=== PATIENT | female | born 1975 | race Caucasian/White ===

== ENCOUNTER 2018-10-21 17:53 | Emergency (ER) | payer SELFPAY ==
[2018-10-21 18:05] VITALS: BP 130/79; PULSE 105; TEMP 97.9; BMI 31.6
--- NOTE | 2018-10-21 18:28 | PDOC ---
History of Present Illness - General Chief Complaint: Cold Symptoms Stated Complaint: COLD SYX Time Seen by Provider: 10/21/18 18:24 - History of Present Illness Initial Comments: 10/21/18 18:26 43-year-old female without comorbidities presents for evaluation of sinus congestion and fever 7 days. Past History - Past Medical History Allergies/Adverse Reactions: Allergies Allergy/AdvReac Type Severity Reaction Status Date / Time No Known Allergies Allergy Verified 10/21/18 18:02 Home Medications: Ambulatory Orders Amox-Tr/K Cl [Augmentin - 875Mg Tablet] 1 tab PO BID #20 tablet 10/21/18 Budesonide [Rhinocort Allergy] 1 spray NS ONCE #1 spray.pump 10/21/18 COPD: No - Surgical History Cholecystectomy: Yes - Family Disease History Family Disease History: Heart Disease: Father (see HPI), Other: Mother ( ) - Suicide/Smoking/Psychosocial Hx Smoking History: Never smoked Have you smoked in the past 12 months: No Number of Cigarettes Smoked Daily: 1 Hx Alcohol Use: No Drug/Substance Use Hx: No Substance Use Type: None Review of Systems - Review of Systems Constitutional: Yes: Fever HEENTM: Yes: Nose Congestion *Physical Exam - Vital Signs Last Vital Signs Temp Pulse Resp BP Pulse Ox 97.9 F 105 H 28 H 130/79 99 10/21/18 18:03 10/21/18 18:03 10/21/18 18:03 10/21/18 18:03 10/21/18 18:03 - Physical Exam Comments: 10/21/18 18:27 HEAD: NC/AT EYES: Conjuntiva clear Ears: Canals and TM's normal NOSE: Clear discharge injected turbinates. THROAT: Moist mucous membrances, oral pharanx clear, uvula midline NECK: Supple without adenopathy CARDIAC: S1 S2 LUNGS: CTA Full and Equal breath sounds ABDOMEN: Soft NT ND MS: Full ROM in all joints without edema NEUROLOGIC: No gross sensory or motor deficits, NVID SKIN: Normal color and temperature no lesions or rashes Moderate Sedation - Procedure Monitoring Vital Signs: Procedure Monitoring Vital Signs Temperature 97.9 F 10/21/18 18:03 Pulse Rate 105 H 10/21/18 18:03 Respiratory Rate 28 H 10/21/18 18:03 Blood Pressure 130/79 10/21/18 18:03 O2 Sat by Pulse Oximetry (%) 99 02/10/19 18:03 *DC/Admit/Observation/Transfer Diagnosis at time of Disposition: Sinusitis - Discharge Dispostion Disposition: HOME - Prescriptions Prescriptions: Amox-Tr/K Cl [Augmentin - 875Mg Tablet] 1 tab PO BID #20 tablet Budesonide [Rhinocort Allergy] 1 spray NS ONCE #1 spray.pump - Referrals Referrals: Marcus Ayon MD [Staff Physician] - - Patient Instructions Printed Discharge Instructions: Sinusitis, DI for Sinusitis Additional Instructions: Please take the antibiotics as directed and finish the entire course. Please use nasal spray as directed as well. Return to the emergency room should symptoms worsen or go unresolved and follow-up with ear nose and throat doctor in 1-2 days for further evaluation and treatment options. You may take Tylenol and Motrin as directed for pain and fever. - Post Discharge Activity
== END 2018-10-21 18:32 | disposition home or self-care (01) ==
LOC: JERFT 17:53
DX: J32.8 Other chronic sinusitis (principal)
CPT/HCPCS: 99281-25

== ENCOUNTER 2019-01-19 15:53 | Emergency (ER) | payer OTHER ==
[2019-01-19 16:07] VITALS: BMI 39.9
[2019-01-19] MEDS ORDERED: FAMOTIDINE 20 MG/50 ML IVPB 20 MG/50 ML MG IVPB ONE ×2 (17:01→17:12)
[2019-01-19] MEDS ORDERED: SODIUM CHLORIDE 0.9% 500 ML INFUS.BAG IV ONE ×2 (17:01→17:58)
[2019-01-19] MEDS ORDERED: METOCLOPRAMIDE HCL INJECTION 10 MG/2 ML VIAL IVPUSH ONE (17:01)
[2019-01-19] MEDS ORDERED: METOCLOPRAMIDE HCL INJECTION 10 MG/2 ML VIAL ONE (17:12)
[2019-01-19 17:30] LABS: BASO % 0.9 % (0-2.0); EOS % 2.2 % (0-4.5); HEMATOCRIT 34.5 % (32.4-45.2); HEMOGLOBIN 10.9 GM/dL (10.7-15.3); LYMPH % 26.1 % (8-40); MCH 24.1 pg (25.7-33.7); MCHC 31.5 g/dl (32.0-36.0); MEAN CELL VOLUME 76.6 fl (80-96); MEAN PLT VOLUME 7.1 fl (7.5-11.1); MONO % 9.7 % (3.8-10.2); NEUT % 61.1 % (42.8-82.8); PLATELET COUNT 350 K/MM3 (134-434); RDW 16.7 % (11.6-15.6); WHITE BLOOD COUNT 5.7 K/mm3 (4.0-10.0)
[2019-01-19 17:40] LABS: INR 1.03 (0.83-1.09); PROTHROMBIN TIME (PATIENT) 12.2 SEC (9.7-13.0)
[2019-01-19 17:55] LABS: ALBUMIN 3.4 g/dl (3.4-5.0); ALK PHOS 107 U/L (45-117); ANION GAP 7 MMOL/L (8-16); BILIRUBIN,TOTAL 0.2 mg/dL (0.2-1); BLOOD UREA NITROGEN 16 mg/dL (7-18); CALCIUM 8.3 mg/dL (8.5-10.1); CHLORIDE 107 mmol/L (98-107); CO2 27 mmol/L (21-32); CREATININE 0.9 mg/dL (0.55-1.3); GLUCOSE,RANDOM 85 mg/dL (74-106); POTASSIUM 3.5 mmol/L (3.5-5.1); SGOT/AST 21 U/L (15-37); SGPT/ALT 30 U/L (13-61); SODIUM 141 mmol/L (136-145); TOT PROT 7.1 g/dl (6.4-8.2)
--- NOTE | 2019-01-19 18:01 | PDOC ---
History of Present Illness - General Chief Complaint: Pain Stated Complaint: UPPER ABD PAIN Time Seen by Provider: 01/19/19 16:42 History Source: Patient Exam Limitations: No Limitations - History of Present Illness Initial Comments: 01/19/19 17:56 43 yo F w/ no sig PMHx, h/o cholecystectomy comes in c/o 2 days of diffuse epigastric pain associated with multiple episodes of NB diarrhea, 6 episodes a day. (+)nausea and a diffuse midld pounding headache with malaise. It all started after she took a meagan/cucumber tea for constipation. Her daughter is also sick with abdominal pain, vomiting/diarrhea but she did not drink from the tea. They both ate chicken wings prior to getting sick. No other complaints today, no vomiting, no lower abdominal pain, no neck pain/stiffness, no dizziness, no urinary symptoms, no vision changes, no rash, no recent travel. (+)decrease in urination, only urinated once today. 01/19/19 17:58 01/19/19 17:59 01/19/19 18:17 Past History - Past Medical History Allergies/Adverse Reactions: Allergies Allergy/AdvReac Type Severity Reaction Status Date / Time Penicillins Allergy Mild Itching Verified 01/19/19 16:04 Home Medications: Ambulatory Orders NK [No Known Home Medication] 01/19/19 COPD: No - Surgical History Cholecystectomy: Yes - Family Disease History Family Disease History: Heart Disease: Father (see HPI), Other: Mother ( ) - Immunization History Immunization Up to Date: No - Suicide/Smoking/Psychosocial Hx Smoking History: Never smoked Have you smoked in the past 12 months: No Number of Cigarettes Smoked Daily: 1 Information on smoking cessation initiated: No Hx Alcohol Use: Yes (socially) Drug/Substance Use Hx: No Substance Use Type: None Review of Systems - Review of Systems Able to Perform ROS?: Yes Constitutional: Yes: Malaise. No: Chills, Fever, Night Sweats HEENTM: No: Eye Pain, Recent change in vision, Throat Pain Respiratory: No: Cough, Shortness of Breath Cardiac (ROS): No: Chest Pain, Palpitations, Chest Tightness ABD/GI: Yes: Diarrhea, Nausea, Poor Appetite, Poor Fluid Intake, Abdominal cramping. No: Vomiting : No: Dysuria, Hematuria Musculoskeletal: No: Back Pain Integumentary: No: Rash Neurological: Yes: Headache. No: Numbness, Dizziness Psychiatric: Yes: Change in Appetite Endocrine: No: Unexplained Weight Loss *Physical Exam - Vital Signs Last Vital Signs Temp Pulse Resp BP Pulse Ox 98.2 F 104 H 18 133/91 98 01/19/19 16:04 01/19/19 16:04 01/19/19 16:04 01/19/19 16:04 01/19/19 17:05 - Physical Exam General Appearance: Yes: Nourished. No: Apparent Distress HEENT: positive: JANNETH, Normal ENT Inspection, Normal Voice. negative: Pale Conjunctivae, Scleral Icterus (R), Scleral Icterus (L) Neck: positive: Supple. negative: Decreased range of motion, Tender midline Respiratory/Chest: positive: Lungs Clear, Normal Breath Sounds. negative: Respiratory Distress, Accessory Muscle Use Cardiovascular: positive: Regular Rhythm, Regular Rate Gastrointestinal/Abdominal: positive: Normal Bowel Sounds, Tender (epigastric/ RUQ/LLQ. No tenderness at McBurney's point, no rebound.), Soft. negative: Decreased BS, Guarding, Rebound Musculoskeletal: positive: Normal Inspection. negative: CVA Tenderness, Decreased Range of Motion Extremity: positive: Normal Capillary Refill, Normal Inspection, Normal Range of Motion. negative: Tender, Pedal Edema Integumentary: positive: Normal Color, Dry. negative: Jaundice, Rash Neurologic: positive: Fully Oriented, Alert, Normal Mood/Affect ED Treatment Course - LABORATORY CBC & Chemistry Diagram: 01/19/19 17:20 01/19/19 17:20 - ADDITIONAL ORDERS Additional order review: Laboratory Results 01/19/19 01/19/19 17:20 17:20 PT with INR 12.20 INR 1.03 Phosphorus 3.0 Magnesium 2.0 Lipase 232 01/19/19 17:20 RBC 4.50 MCV 76.6 L MCHC 31.5 L RDW 16.7 H MPV 7.1 L Neutrophils % 61.1 Lymphocytes % 26.1 Monocytes % 9.7 Eosinophils % 2.2 D Basophils % 0.9 - Medications Given in the ED: ED Medications Discontinued Medications Generic Name Dose Route Start Last Admin Trade Name Freq PRN Reason Stop Dose Admin Diphenhydramine HCl 25 mg 01/19/19 17:01 01/19/19 17:26 Benadryl Injection - IVPUSH 01/19/19 17:02 25 mg ONCE ONE Administration Famotidine/Sodium Chloride 20 mg in 50 mls @ 100 mls/hr 01/19/19 17:01 17:27 Pepcid 20 Mg Premixed Ivpb - IVPB 01/19/19 17:30 100 mls/hr ONCE ONE Administration Metoclopramide HCl 10 mg 01/19/19 17:01 01/19/19 17:27 Reglan Injection - IVPUSH 01/19/19 17:02 10 mg ONCE ONE Administration Sodium Chloride 1,000 ml 01/19/19 17:01 01/19/19 17:26 Normal Saline - IV 01/19/19 17:02 1,000 ml ONCE ONE Administration Medical Decision Making - Medical Decision Making 01/19/19 18:00 43 yo F w/ likely AGE. Will line and lab, give fluids, pepcid, reglan, benadryl and reassess. 01/19/19 18:51 Change of shift, care of patient signed over to MD Osullivan who will reassess patient, check labs and decide on a dispo plan along with the attending. 43 yo F w. Nausea/Diarrhea, abdominal pain, likely AGE. Please reassess, pending labs , UA/UCG. Pt feeling much better after meds *DC/Admit/Observation/Transfer Diagnosis at time of Disposition: Abdominal pain Qualifiers: Abdominal location: unspecified location Qualified Code(s): R10.9 - Unspecified abdominal pain - Referrals - Patient Instructions - Post Discharge Activity
[2019-01-19 19:36] LABS: EPI CELLS 2.3 /HPF (0-5/HPF); URINE APPEARANCE CLEAR; URINE BACTERIA 1.4 /hpf (NEGATIVE); URINE BILIRUBIN NEGATIVE (NEGATIVE); URINE CASTS 1 /lpf (0-8); URINE COLOR RED; URINE GLUCOSE (UA) NEGATIVE (NEGATIVE); URINE KETONE NEGATIVE (NEGATIVE); URINE LEUK ESTERASE 1+ (NEGATIVE); URINE NITRITE NEGATIVE (NEGATIVE); URINE PROTEIN TRACE (NEGATIVE); URINE RBC 2604 /hpf (0-4); URINE UROBILINOGEN 0.2 mg/dL (0.2-1.0); URINE WBC 10 /hpf (0-5)
[2019-01-19 19:48] VITALS: BP 125/76; PULSE 85; TEMP 97.6
--- NOTE | 2019-01-19 19:54 | PDOC ---
*Physical Exam - Vital Signs Last Vital Signs Temp Pulse Resp BP Pulse Ox 97.6 F 85 18 125/76 100 01/19/19 19:46 01/19/19 19:46 01/19/19 16:04 01/19/19 19:46 01/19/19 19:46 ED Treatment Course - LABORATORY CBC & Chemistry Diagram: 01/19/19 17:20 01/19/19 17:20 - ADDITIONAL ORDERS Additional order review: Laboratory Results 01/19/19 01/19/19 01/19/19 18:50 17:20 17:20 PT with INR 12.20 INR 1.03 Sodium Potassium Chloride Carbon Dioxide Anion Gap BUN Creatinine Est GFR (CKD-EPI)AfAm Est GFR (CKD-EPI)NonAf Random Glucose Calcium Phosphorus 3.0 Magnesium 2.0 Total Bilirubin AST ALT Alkaline Phosphatase Total Protein Albumin Lipase 232 Beta HCG, Quant Urine HCG, Qual Negative Blood Type Antibody Screen 01/19/19 01/19/19 17:20 17:20 PT with INR INR Sodium 141 Potassium 3.5 Chloride 107 Carbon Dioxide 27 Anion Gap 7 L BUN 16 Creatinine 0.9 Est GFR (CKD-EPI)AfAm 92.05 Est GFR (CKD-EPI)NonAf 79.42 Random Glucose 85 Calcium 8.3 L Phosphorus Magnesium Total Bilirubin 0.2 AST 21 ALT 30 Alkaline Phosphatase 107 Total Protein 7.1 Albumin 3.4 Lipase Beta HCG, Quant < 1.0 Urine HCG, Qual Blood Type A POSITIVE Antibody Screen Negative 01/19/19 17:20 RBC 4.50 MCV 76.6 L MCHC 31.5 L RDW 16.7 H MPV 7.1 L Neutrophils % 61.1 Lymphocytes % 26.1 Monocytes % 9.7 Eosinophils % 2.2 D Basophils % 0.9 - Medications Given in the ED: ED Medications Discontinued Medications Generic Name Dose Route Start Last Admin Trade Name Freq PRN Reason Stop Dose Admin Diphenhydramine HCl 25 mg 01/19/19 17:01 01/19/19 17:26 Benadryl Injection - IVPUSH 01/19/19 17:02 25 mg ONCE ONE Administration Famotidine/Sodium Chloride 20 mg in 50 mls @ 100 mls/hr 01/19/19 17:01 17:27 Pepcid 20 Mg Premixed Ivpb - IVPB 01/19/19 17:30 100 mls/hr ONCE ONE Administration Metoclopramide HCl 10 mg 01/19/19 17:01 01/19/19 17:27 Reglan Injection - IVPUSH 01/19/19 17:02 10 mg ONCE ONE Administration Sodium Chloride 1,000 ml 01/19/19 17:01 01/19/19 17:26 Normal Saline - IV 01/19/19 17:02 1,000 ml ONCE ONE Administration Sodium Chloride 1,000 ml 01/19/19 17:58 01/19/19 18:13 Normal Saline - IV 01/19/19 17:59 1,000 ml ONCE ONE Administration Medical Decision Making - Medical Decision Making 01/19/19 19:53 Received signout from Nelida Montelongo. Patient is 43F with epigastric abdominal pain. Vitals stable. Pending UA, reassessment, likely discharge. Patient is nontender on exam, tolerating PO, vitals normal. Will discharge with return precautions. *DC/Admit/Observation/Transfer Diagnosis at time of Disposition: Abdominal pain Qualifiers: Abdominal location: unspecified location Qualified Code(s): R10.9 - Unspecified abdominal pain - Discharge Dispostion Disposition: HOME Condition at time of disposition: Good Decision to Admit order: No - Referrals - Patient Instructions Printed Discharge Instructions: DI for Abdominal Pain-Adult Additional Instructions: Please return to the ED if you have any new, worsening or concerning symptoms, especially increasing pain, fever, and vomiting. Please follow up with your primary care physician this week. - Post Discharge Activity
== END 2019-01-19 20:24 | disposition home or self-care (01) ==
LOC: JER 15:53
PROC: 3E0337Z Introduction of Electrolytic and Water Balance Substance into Peripheral Vein, Percutaneous Approach (ICD-10-PCS; principal; 2019-01-19)
PROC: 3E0337Z Introduction of Electrolytic and Water Balance Substance into Peripheral Vein, Percutaneous Approach (ICD-10-PCS; 2019-01-19)
PROC: 3E033GC Introduction of Other Therapeutic Substance into Peripheral Vein, Percutaneous Approach (ICD-10-PCS; 2019-01-19)
DX: R10.9 Unspecified abdominal pain (principal)
CPT/HCPCS: 36415; 80053; 81003; 83690; 83735; 84100; 84702; 84703; 85025; 85610; 86850; 86900; 86901; 87086; 99284-25

== ENCOUNTER 2021-05-18 13:21 | Emergency (ER) | payer OTHER ==
[2021-05-18 13:42] VITALS: BP 146/94; PULSE 96; TEMP 98.6; BMI 40.1
[2021-05-18 14:13] LABS: EPI CELLS 11 /uL (0-25.1); HYALINE CASTS 0 /uL (0-3.1); URINE APPEARANCE CLEAR; URINE BACTERIA 817 /uL (0-1359); URINE BILIRUBIN NEGATIVE (NEGATIVE); URINE COLOR YELLOW; URINE GLUCOSE (UA) NEGATIVE (NEGATIVE); URINE KETONE NEGATIVE (NEGATIVE); URINE LEUK ESTERASE 1+ (NEGATIVE); URINE NITRITE NEGATIVE (NEGATIVE); URINE PROTEIN NEGATIVE (NEGATIVE); URINE RBC 11 /uL (0-23.9); URINE UROBILINOGEN 0.2 mg/dL (0.2-1.0); URINE WBC 44 /uL (0-25.8)
[2021-05-18 14:14] LABS: HCG,QUALITATIVE URINE Negative
[2021-05-18] MEDS ORDERED: ONDANSETRON 4 MG/2 ML VIAL IVPUSH ONE (14:23)
[2021-05-18] MEDS ORDERED: KETOROLAC TROMETHAMINE 15 MG/ML VIAL IVPUSH ONE (14:23)
[2021-05-18] MEDS ORDERED: SODIUM CHLORIDE 0.9% 500 ML INFUS.BAG IV ONE (14:23)
[2021-05-18] MEDS ORDERED: ONDANSETRON 4 MG/2 ML VIAL ONE (14:37)
[2021-05-18] MEDS ORDERED: KETOROLAC TROMETHAMINE 15 MG/ML VIAL ONE (14:37)
[2021-05-18] MEDS ORDERED: morphine CARPU-JECT 4 MG/1 ML DISP.SYRIN IVPUSH ONE (14:48)
[2021-05-18 14:53] LABS: BASO % 0.7 % (0-2.0); EOS % 2.2 % (0-4.5); HEMATOCRIT 29.6 % (32.4-45.2); HEMOGLOBIN 9.3 GM/dL (10.7-15.3); LYMPH % 26.4 % (8-40); MCHC 31.3 g/dl (32.0-36.0); MEAN CELL VOLUME 67.1 fl (80-96); MEAN PLT VOLUME 6.8 fl (7.5-11.1); MONO % 9.4 % (3.8-10.2); NEUT % 61.3 % (42.8-82.8); PLATELET COUNT 439 10^3/uL (134-434); RBC 4.41 M/mm3 (3.60-5.2); RDW 18.1 % (11.6-15.6); WHITE BLOOD COUNT 5.9 K/mm3 (4.0-10.0)
[2021-05-18] MEDS ORDERED: morphine SULFATE 4 MG/ML VIAL ONE (14:59)
[2021-05-18 15:12] LABS: ANISOCYTOSIS 3+; MACROCYTOSIS 0; PLATELET ESTIMATE NORMAL
[2021-05-18 15:21] LABS: CALCIUM 8.6 mg/dL (8.5-10.1)
[2021-05-18 15:22] LABS: ALBUMIN 3.5 g/dl (3.4-5.0); BLOOD UREA NITROGEN 13.3 mg/dL (7-18)
[2021-05-18 15:25] LABS: CREATININE 0.6 mg/dL (0.55-1.3)
[2021-05-18 15:26] LABS: BILIRUBIN,TOTAL 0.2 mg/dL (0.2-1); TOT PROT 7.3 g/dl (6.4-8.2)
== END 2021-05-18 16:31 | disposition home or self-care (01) ==
LOC: JER 13:21
PROC: 3E0333Z Introduction of Anti-inflammatory into Peripheral Vein, Percutaneous Approach (ICD-10-PCS; principal; 2021-05-18)
PROC: 3E033NZ Introduction of Analgesics, Hypnotics, Sedatives into Peripheral Vein, Percutaneous Approach (ICD-10-PCS; 2021-05-18)
PROC: 3E033GC Introduction of Other Therapeutic Substance into Peripheral Vein, Percutaneous Approach (ICD-10-PCS; 2021-05-18)
DX: N10 Acute pyelonephritis (principal); R10.9 Unspecified abdominal pain
CPT/HCPCS: 36415; 74176-TC; 80053; 81003; 84703; 85025; 87077; 87086; 96374; 96375; 99284-25

== ENCOUNTER 2023-03-17 12:42 | Emergency (ER) | payer OTHER ==
[2023-03-17 12:53] VITALS: BP 146/92; PULSE 97; RESP 18; TEMP 98.5; BMI 39.4
[2023-03-17] MEDS ORDERED: MAG HYDROX/AL HYDROX/SIMETH 30 ML UNIT-DOSE CUP PO ONE (13:28)
[2023-03-17] MEDS ORDERED: ACETAMINOPHEN 1000 MG/100 ML BAG IVPB ONE (13:28)
[2023-03-17] MEDS ORDERED: FAMOTIDINE 20 MG/50 ML IVPB 20 MG/50 ML MG IVPB ONE ×2 (13:28→13:32)
[2023-03-17] MEDS ORDERED: MAG HYDROX/AL HYDROX/SIMETH 30 ML UNIT-DOSE CUP ONE (13:31)
[2023-03-17] MEDS ORDERED: ACETAMINOPHEN INJECTION 100 ML IVPB ONE (13:31)
[2023-03-17 14:06] LABS: EOS % 2.5 % (0-4.5); HEMATOCRIT 28.6 % (32.4-45.2); HEMOGLOBIN 8.5 GM/dL (10.7-15.3); LYMPH % 21.6 % (8-40); MCH 20.3 pg (25.7-33.7); MCHC 29.8 g/dl (32.0-36.0); MEAN CELL VOLUME 68.2 fl (80-96); MEAN PLT VOLUME 7.2 fl (7.5-11.1); MONO % 8.4 % (3.8-10.2); NEUT % 66.5 % (42.8-82.8); PLATELET COUNT 453 10^3/uL (134-434); RBC 4.19 M/mm3 (3.60-5.2); RDW 18.6 % (11.6-15.6); WHITE BLOOD COUNT 7.2 K/mm3 (4.0-10.0)
[2023-03-17 14:38] LABS: ANISOCYTOSIS 2+; MACROCYTOSIS 0
[2023-03-17] MEDS ORDERED: KETOROLAC TROMETHAMINE 15 MG/ML VIAL IVPUSH ONE (15:06)
[2023-03-17] MEDS ORDERED: PANTOPRAZOLE SODIUM 40 MG VIAL IVPUSH ONE (15:11)
[2023-03-17] MEDS ORDERED: SUCRALFATE 1 GM TABLET (FP) PO ONE (15:11)
[2023-03-17] MEDS ORDERED: SUCRALFATE 1 GM TABLET (FP) ONE (15:19)
[2023-03-17] MEDS ORDERED: KETOROLAC TROMETHAMINE 15 MG/ML VIAL ONE (15:19)
[2023-03-17] MEDS ORDERED: PANTOPRAZOLE SODIUM 40 MG VIAL ONE (15:20)
[2023-03-17 15:21] LABS: POTASSIUM 3.9 mmol/L (3.5-5.1)
[2023-03-17 15:23] LABS: CALCIUM 8.9 mg/dL (8.5-10.1)
[2023-03-17 15:24] LABS: ALBUMIN 3.5 g/dl (3.4-5.0); BLOOD UREA NITROGEN 13.9 mg/dL (7-18)
[2023-03-17 15:27] LABS: CREATININE 0.5 mg/dL (0.55-1.3)
[2023-03-17 15:29] LABS: TOT PROT 6.9 g/dl (6.4-8.2)
[2023-03-17 15:34] LABS: BILIRUBIN,TOTAL 0.2 mg/dL (0.2-1)
[2023-03-17] MEDS ORDERED: SUCRALFATE 1 GM/10 ML UNIT DOSE CUPS PO SCH (22:00)
== END 2023-03-17 16:28 | disposition home or self-care (01) ==
LOC: JER 12:42
PROC: 3E033GC Introduction of Other Therapeutic Substance into Peripheral Vein, Percutaneous Approach (ICD-10-PCS; principal; 2023-03-17)
PROC: 3E033NZ Introduction of Analgesics, Hypnotics, Sedatives into Peripheral Vein, Percutaneous Approach (ICD-10-PCS; 2023-03-17)
PROC: 3E0333Z Introduction of Anti-inflammatory into Peripheral Vein, Percutaneous Approach (ICD-10-PCS; 2023-03-17)
PROC: 3E033GC Introduction of Other Therapeutic Substance into Peripheral Vein, Percutaneous Approach (ICD-10-PCS; 2023-03-17)
DX: K21.9 Gastro-esophageal reflux disease without esophagitis (principal); R10.13 Epigastric pain
CPT/HCPCS: 36415; 80053; 83690; 84484; 85025; 93005; 93010; 99284-25

== ENCOUNTER 2023-07-29 15:01 | Emergency (ER) | payer OTHER ==
[2023-07-29 15:10] VITALS: PULSE 97; TEMP 98; BMI 39.9
[2023-07-29] MEDS ORDERED: ONDANSETRON 4 MG/2 ML VIAL IVPUSH ONE (15:55)
[2023-07-29] MEDS ORDERED: ACETAMINOPHEN 1000 MG/100 ML BAG IVPB ONE (15:55)
[2023-07-29] MEDS ORDERED: ACETAMINOPHEN INJECTION 100 ML IVPB ONE (16:12)
[2023-07-29] MEDS ORDERED: ONDANSETRON 4 MG/2 ML VIAL ONE (16:12)
[2023-07-29 16:41] LABS: PH,URINE 5.5 (5.0-8.0); URINE APPEARANCE CLOUDY; URINE BILIRUBIN NEGATIVE (NEGATIVE); URINE COLOR YELLOW; URINE GLUCOSE (UA) NEGATIVE (NEGATIVE); URINE KETONE NEGATIVE (NEGATIVE); URINE LEUK ESTERASE NEGATIVE (NEGATIVE); URINE NITRITE NEGATIVE (NEGATIVE); URINE PROTEIN NEGATIVE (NEGATIVE); URINE UROBILINOGEN 0.2 mg/dL (0.2-1.0)
[2023-07-29 16:42] LABS: BASO % 0.9 % (0-2.0); EOS % 2.2 % (0-4.5); HEMATOCRIT 27.6 % (32.4-45.2); HEMOGLOBIN 8.5 GM/dL (10.7-15.3); LYMPH % 20.1 % (8-40); MCHC 30.7 g/dl (32.0-36.0); MEAN CELL VOLUME 64.9 fl (80-96); MEAN PLT VOLUME 6.6 fl (7.5-11.1); MONO % 8.6 % (3.8-10.2); NEUT % 68.2 % (42.8-82.8); PLATELET COUNT 485 10^3/uL (134-434); RBC 4.25 M/mm3 (3.60-5.2); WHITE BLOOD COUNT 7.5 K/mm3 (4.0-10.0)
[2023-07-29 16:49] LABS: INR 1.05 (0.83-1.09); PROTHROMBIN TIME (PATIENT) 12.2 SEC (9.7-13.0)
[2023-07-29 16:50] LABS: MCH 19.9 pg (25.7-33.7)
[2023-07-29 17:07] LABS: POTASSIUM 3.4 mmol/L (3.5-5.1)
[2023-07-29 17:09] LABS: CALCIUM 8.2 mg/dL (8.5-10.1)
[2023-07-29 17:10] LABS: ALBUMIN 3.4 g/dl (3.4-5.0); BLOOD UREA NITROGEN 16.4 mg/dL (7-18); MAGNESIUM 1.9 mg/dL (1.8-2.4)
[2023-07-29 17:13] LABS: CREATININE 0.7 mg/dL (0.55-1.3)
[2023-07-29 17:14] LABS: BILIRUBIN,TOTAL 0.2 mg/dL (0.2-1); TOT PROT 7.2 g/dl (6.4-8.2)
[2023-07-29 17:18] LABS: N-TERMINAL BNP 79.1 pg/ml (5-125)
[2023-07-29] MEDS ORDERED: POTASSIUM CHLORIDE ORAL LIQUID 20 MEQ/15 ML PO ONE (17:20)
[2023-07-29] MEDS ORDERED: POTASSIUM CHLORIDE ORAL LIQUID 20 MEQ/15 ML ONE (17:54)
[2023-07-29] MEDS ORDERED: KETOROLAC TROMETHAMINE 30 MG/1 ML VIAL IVPUSH ONE (19:23)
[2023-07-29] MEDS ORDERED: KETOROLAC TROMETHAMINE 30 MG/1 ML VIAL ONE (19:31)
[2023-07-29] MEDS ORDERED: FAMOTIDINE 20 MG/50 ML IVPB 20 MG/50 ML MG IVPB ONE ×2 (20:02→20:20)
[2023-07-29] MEDS ORDERED: MAG HYDROX/AL HYDROX/SIMETH 30 ML UNIT-DOSE CUP PO ONE (20:02)
[2023-07-29] MEDS ORDERED: SUCRALFATE 1 GM TABLET (FP) PO ONE (20:02)
[2023-07-29] MEDS ORDERED: SUCRALFATE 1 GM TABLET (FP) ONE (20:19)
[2023-07-29] MEDS ORDERED: MAG HYDROX/AL HYDROX/SIMETH 30 ML UNIT-DOSE CUP ONE (20:20)
[2023-07-29 20:26] LABS: ANISOCYTOSIS 1+; MACROCYTOSIS 0; PLATELET ESTIMATE NORMAL
[2023-07-29 20:40] VITALS: BP 148/86; RESP 18
== END 2023-07-29 21:07 | disposition home or self-care (01) ==
LOC: JER 15:01
PROC: 3E033GC Introduction of Other Therapeutic Substance into Peripheral Vein, Percutaneous Approach (ICD-10-PCS; principal; 2023-07-29)
PROC: 3E033NZ Introduction of Analgesics, Hypnotics, Sedatives into Peripheral Vein, Percutaneous Approach (ICD-10-PCS; 2023-07-29)
PROC: 3E0333Z Introduction of Anti-inflammatory into Peripheral Vein, Percutaneous Approach (ICD-10-PCS; 2023-07-29)
PROC: 3E033GC Introduction of Other Therapeutic Substance into Peripheral Vein, Percutaneous Approach (ICD-10-PCS; 2023-07-29)
DX: R10.33 Periumbilical pain (principal); R10.13 Epigastric pain; R07.9 Chest pain, unspecified; R11.0 Nausea; R42 Dizziness and giddiness; R61 Generalized hyperhidrosis; Z20.822 Contact with and (suspected) exposure to COVID-19
CPT/HCPCS: 0241U-QW; 36415; 71045-TC-FY; 71275-TC; 74174-TC; 80053; 81003; 82550; 83605; 83690; 83735; 83880; 84484; 84703; 85025; 85610; 85730; 86850; 86900; 86901; 87086; 93005; 93010; 99285-25; Q9967